=== PATIENT | male | born 1980 | race Two or more races ===

== ENCOUNTER 2021-02-25 22:33 | Emergency (ER) | payer OTHER ==
[~2021-02-25] VITALS: Ht 177.8 cm; Wt 103.9 kg
[2021-02-25] MEDS ORDERED: IBUPROFEN 800 MG TAB PO ONE (23:00)
[2021-02-25] MEDS ORDERED: ACETAMINOPHEN 500 MG TAB PO ONE (23:00)
[2021-02-26 00:52] LABS: Calcium 8.4 mg/dL (8.5-10.1)
[2021-02-26 00:57] LABS: Albumin 4.5 g/dL (3.4-5.0); BUN/Creatinine Ratio 4.2
[2021-02-26 00:59] LABS: Bilirubin, Total 0.6 mg/dL (0.2-1.0); Total Protein 8.3 g/dL (6.4-8.2)
[2021-02-26 01:28] LABS: Hematocrit 30.7 % (41.0-53.0); Hemoglobin 10.6 g/dL (13.5-17.5); Mean Corpuscular Hemoglobin 34.9 pg (28.0-32.0); Mean Corpuscular Hgb Conc. 34.4 g/dL (32.0-36.0); Mean Corpuscular Volume 101.3 fL (80.0-100.0); Red Blood Cells 3.03 10^6/uL (4.5-5.90); White Blood Cell 7.8 10^3/uL (4.4-10.8)
[2021-02-26 01:47] LABS: Basophils % (manual) 0 (0.0-2.0); Blast Cells 0; Eosinophils % (manual) 0 (0-7); Metamyelocytes % 0; Myelocytes % 0; Promyelocytes % 0; Reactive Lymphocytes 0
[2021-02-26 03:18] LABS: Urine Bacteria MANY /hpf (None Seen); Urine Blood 1+ /uL (Negative); Urine Sperm PRESENT /hpf (None Seen); Urine WBC 65 /hpf (0 - 3)
[2021-02-26 03:48] LABS: Band Neutrophils % (manual) 38; Lymphocytes % (manual) 3 (10.0-50.0); Monocytes % (manual) 5 (0-12)
[2021-02-26 04:28] VITALS: BP 101/59
[2021-02-27] MEDS ORDERED: SUCR5CHW PO (12:04)
[2021-02-27] MEDS ORDERED: LISI20TA28 PO (12:04)
[2021-02-27] MEDS ORDERED: AMLO-496 PO (12:04)
[2021-02-27] MEDS ORDERED: CALC667C PO (12:04)
[2021-02-27] MEDS ORDERED: CARV12.544 PO (12:04)
== END 2021-02-26 04:27 | disposition home or self-care (01) ==
LOC: ER 22:33
DX: I51.7 Cardiomegaly (principal); I87.8 Other specified disorders of veins; N18.6 End stage renal disease
CPT/HCPCS: 36415; 71045; 80053; 81001; 82550; 83605; 85007; 85027; 87040; 99285; J7040; 87077; 87186

== ENCOUNTER 2025-03-06 11:13 | Emergency (ER) | payer OTHER ==
[~2025-03-06] VITALS: Ht 180.3 cm; Wt 119.9 kg
[~2025-03-06 11:13] MED LIST: AMLO1TAB23 PO; CALC667C PO; CARV12.544 PO; LISI20TA56 PO; SUCR5CHW PO
[2025-03-06 11:20] VITALS: BP 182/112; PULSE 77; RESP 17; TEMP 98; O2SAT 98
[2025-03-06] MEDS: LIDOCAINE W/ EPINEPHRINE 1% 20ML VIAL ID ONE (11:42)
--- NOTE | 2025-03-06 11:47 | ED.PDOC ---
History of Present Illness(SKN HPI Comments 44M presents to the ER w/ prior MHx of an abscess on the left shoulder for 4 years, HTN, ESRD xT, , Sat presents for the c/c of a possible abscess. Pt states on the abscess being small but during the last 7 days, it grew w/ size and associated w/ erythema, mild yellow drainage and painful to touch. Patient denies any fever, cough, difficulty swallowing, or shortness of breath Denies fever chills night sweats nausea vomiting diarrhea Denies history of STI Denies cough and cold-like symptoms Denies recent travel Denies sick contact with similar rash Denies noticing any insects Denies bruising bleeding anywhere Denies chronic skin issues or family history of skin issues Chief Complaint: Abscess Time Seen by MD: 11:30 History of Present Illness: Nurses Notes, Medications, Allergies Allergies: Coded Allergies: NO KNOWN ALLERGIES (Unverified , 02/25/21) Home Meds Reported Medications Calcium Acetate (Phosphate Bin (Calcium Acetate) 667 Mg Cap, 2 CAP PO TID 02/27/21 Amlodipine Besylate (Amlodipine Besylate) 10 Mg Tab, 1 TAB PO DAILYPRN 02/27/21 Lisinopril (Lisinopril) 20 Mg Tab, 1 TAB PO DAILYPRN 02/27/21 Carvedilol (Carvedilol) 12.5 Mg Tab, 1 TAB PO BID 02/27/21 Polynuclear Iron(III)-Oxyhydro (Velphoro) 500 Mg Chw, PO 02/27/21 Information Source: Patient Mode of Arrival: Ambulatory Severity: Moderate Timing: Days Duration: Since onset, Days Prehospital treatment: None Location: Other (left shoulder) Mechanism: Preceding Wound Object: None Condition of Object: None Retained Foreign Body: No Wound Type: Abscess Immunization Status of Animal: NA Tetanus: Unknown History of: None Associated Signs and Symptoms: Redness, Swelling, Pus Past Medical History PAST MEDICAL HISTORY: ESRD (T, , Sat), HTN Surgical History: Denies all surgeries Family History Family History: Reviewed,noncontributory to illness, Unknown Social History Smoker: Non-Smoker Alcohol: Denies ETOH Use Drugs: Denies Drug Use Lives In: Home Constitutional: denies: chills, diaphoresis, fatigue, fever, malaise, sweats, weakness, others EENTM: denies: blurred vision, double vision, ear bleeding, ear discharge, ear drainage, ear pain, ear ringing, eye pain, eye redness, hearing loss, mouth pain, mouth swelling, nasal discharge, nose bleeding, nose congestion, nose pain, photophobia, tearing, throat pain, throat swelling, voice changes, others Respiratory: denies: cough, hemoptysis, orthopnea, SOB at rest, shortness of breath, SOB with excertion, stridor, wheezing, others Cardiovascular: denies: chest pain, dizzy spells, diaphoresis, Dyspnea on exe rtion, edema, irregular heart beat, left arm pain, lightheadedness, palpitations, PND, syncope, others Gastrointestinal: denies: abdomen distended, abdominal pain, blood streaked bowels, constipated, diarrhea, dysphagia, difficulty swallowing, hematemesis, melena, nausea, poor appetite, poor fluid intake, rectal bleeding, rectal pain, vomiting, others Genitourinary: denies: burning, dysuria, flank pain, frequency, hematuria, incontinence, penile discharge, penile sore, pain, testicle pain, testicle swelling, urgency, others Neurological: denies: dizziness, fainting, headache, left sided numbness, left sided weakness, numbness, paresthesia, pre-existing deficit, right sided numbness, right sided weakness, seizure, speech problems, tingling, tremors, weakness, others Musculoskeletal: denies: back pain, gout, joint pain, joint swelling, muscle pain, muscle stiffness, neck pain, others Integumetry: reports: wounds (abcess w/ foul smell, pain and erythema); denies: bruises, change in color, change in hair/nails, dryness, laceration, lesions, lumps, rash, others Allergic/Immunocompromised: denies: Difficulty Healing, Frequent Infections, Hives, Itching, others Hematologic/Lymphatic: denies: anemia, blood clots, easy bleeding, easy bruising, swollen glands, others Endocrine: denies: excessive hunger, excessive sweating, excessive thirst, excessive urination, flushing, intolerance to cold, intolerance to heat, unexplained weight gain, unexplained weight loss, others Psychiatric: denies: anxiety, bipolar disorder, depression, hopeless, panic disorder, schizophrenia, sleepless, suicidal, others All Other Systems: Reviewed and Negative Physical Exam General Appearance: No Apparent Distress, Normal HEENT: Normal ENT Inspection, Pharynx Normal, TMs Normal Neck: Full Range of Motion, Non-Tender, Normal, Normal Inspection Respiratory: Chest Non-Tender, Lungs Clear, No Accessory Muscle Use, No Respiratory Distress, Normal Breath Sounds Cardiovascular: No Murmur, No Gallop, Regular Rate/Rhythm Breast Exam: Deferred Gastrointestinal: No Organomegaly, Non Tender, No Pulsatile Mass, Normal Bowel Sounds, Soft Genitalia: Deferred Pelvic: Deferred Rectal: Deferred Extremities: No calf tenderness, Normal capillary refill, Normal inspection, Normal range of motion, Non-tender, No pedal edema Musculoskeletal : Apperance: Normal Neurologic: Alert, mechanical engineering advisor II-XII nml as Tested, No Motor Deficits, Normal Affect, Normal Mood, No Sensory Deficits Cerebellar Function: Normal Reflexes: Normal Skin: Dry, Other (5cm x 3cm round abscess, Fluctuate to Palpation, Localized Erythema, Mild TTP) Lymphatic: No Adenopathy Was a procedure done? Was a procedure done?: Yes Sedation Sedation?: No Incision and Drainage Incision and Drainage: Abscess Location left lateral trapezious Anesthetic: Lidocaine with Epi Preparation: Betadine, Saline Incision and Wound: Seroma, Irrigated Informed consent obtained: Yes Risks/benefits/alt described: Yes Differential Diagnosis (INTG) Differential Diagnosis: Other Differential Diagnosis: Abscess X-Ray, Labs, Meds, VS Vital Signs Date Time Temp Pulse Resp B/P (MAP) Pulse Ox O2 Delivery O2 Flow Rate FiO2 03/06/25 11:20 98.0 77 17 182/112 (135) 98 98.0 Current Medications Medications (Trade) Dose Ordered Sig/[place] Route Start Time Stop Time Status Last Admin Lidocaine/ Epinephrine 5 ml ONCE ONCE ID 03/06/25 11:45 03/06/25 11:46 DC 03/06/25 11:42 X-Ray, Labs, Meds, VS Comment 44M presents to the ER w/ prior MHx of an abscess on the left shoulder for 4 years, HTN, ESRD xT, Th, Sat and the c/c of left shoulder pain. Patient arrives alert and oriented, ABC's intact, afebrile, vital signs stable, saturating well in room air Additional MDM This patient presents with signs and symptoms consistent with a cutaneous abscess. The abscess is localized without any evidence of deep soft tissue infection based on physical examination. The patient required incision and drainage. Differential diagnosis considered but not limited to: abscess, folliculitis, cellulitis. I also considered deep space infection, necrotizing fasciitis, sepsis, however, this is less likely as the patient does not have rapid expanding erythema or pain out of proportion to suggest necrotizing fasciitis. There is no evidence of sepsis on both a review of their vitals and clinical exam. Procedure Note: Verbal informed consent was obtained from the patient. I discussed the indications, benefits, alternatives and complications to performing an incision and drainage. The patient understands the risks include, but are not limited to scarring, underlying structure injury, bleeding, nerve injury, new infection, and resultant disability. The skin overlying the abscess was prepared with Betadine. The skin surrounding the abscess was locally anesthetized using 1% Lidocaine with EPI An incision using a number 11 blade scalpel was made overlying the abscess. The incision was 1 cm long. Careful exploration of the abscess cavity demonstrated no foreign body. The abscess cavity was packed with sterile packing. The wound was then dressed with sterile gauze. The wound was hemostatic at the conclusion of the procedure. The patient did not appear to suffer any complications as a result of the procedure. The patient was counseled in regard to the diagnosis and management of the condition and verbalized understanding of this. The patient understands to return to the ER or seek immediate medical attention if the symptoms worsen. The patient also understands the table return in 48 hours for wound check Patient is stable for discharge at this time. External notes reviewed. Test results and diagnostic imaging interpreted. All diagnostic findings, discharge care, education and instructions provided Follow-up with PCP in 2 to 3 days Patient verbalized understanding and agreed to treatment plan Vital signs stable, afebrile, no acute distress noted Patient ambulatory with strong steady gait Advised to return precautions for any new or worsening symptoms, return to ER immediately for re-evaluation Patient is aware that the purpose of this visit was for an acute medical emergency requiring emergent stabilization. Chronic conditions, including malignancies have not been ruled out. Patient is instructed to follow up with PCP as directed and discharge instructions for continued care and workup. If unable to arrange follow-up, patient is to return to the emergency department for reassessment. Patient (parent or legal guardian if applicable) was given verbal and written discharge instructions and acknowledges understanding. Review of External, Non-ED records: External records reviewed. Discussion with independent historian (EMS, family) history obtained from the patient/parents (if applicable) at bedside Chronic conditions affecting care: None Social determinants of health affecting care: None Consideration of admission (observation or admission): I considered escalation of care to admission for this patient, however given the reassuring workup, the patient is safe for outpatient management. Time of 1ST Reevaluation: 12:00 Reevaluation 1ST: Improved Patient Education/Counseling: Diagnosis, Treatment, Prognosis Family Education/Counseling: No Family Present SEPSIS Sepsis Screen Physician Orders 4X4 (03/06/25 11:36) Packing (03/06/25 11:36) Sterile Gloves (03/06/25 11:36) Sterile Dressing (03/06/25 11:36) I&D Tray (03/06/25 11:36) Vital Signs Date Time Temp Pulse Resp B/P (MAP) Pulse Ox O2 Delivery O2 Flow Rate FiO2 03/06/25 11:20 98.0 77 17 182/112 (135) 98 98.0 Departure 1 Departure Time of Disposition: 12:19 Impression: Primary Impression: Elevated blood pressure reading Additional Impression: Epidermoid cyst Disposition: 01 HOME / SELF CARE / HOMELESS Condition: Fair Discharged With: Self Critical Care Note Critical Care Time?: No Stability Stability form required: No Heart Score Heart Score: Heart Score Response (Comments) Value History N/A 0 EKG N/A 0 Age N/A 0 Risk Factors N/A 0 Troponin N/A 0 Total 0 I personally scribed for BRANDON RODRÍGUEZ NP ([email or web address]) on 03/06/25 at 11:47. Electronically submitted by Braulio Mendez ([email or web address]). BRANDON RODRÍGUEZ NP Mar 06, 2025 11:47
== END 2025-03-06 12:33 | disposition home or self-care (01) ==
LOC: ER 11:13
DX: I12.0 Hypertensive chronic kidney disease with stage 5 chronic kidney disease or end stage renal disease (principal); N18.6 End stage renal disease; L72.0 Epidermal cyst; Z79.899 Other long term (current) drug therapy
CPT/HCPCS: 10060